=== PATIENT | female | born 1940 | race Caucasian/White ===

== ENCOUNTER 2018-08-11 07:07 | Day surgery (SDC) | payer MEDICARE ==
[2018-08-11] MEDS ORDERED: PROPOFOL 60 ML (08:45)
[2018-08-11] MEDS ORDERED: LIDOCAINE 2% (SDV) 5 ML INJ (08:45)
== END 2018-08-11 11:19 | disposition home or self-care (01) ==
LOC: GIL 07:07
DX: D12.4 Benign neoplasm of descending colon (principal); D12.3 Benign neoplasm of transverse colon; K29.60 Other gastritis without bleeding; K62.1 Rectal polyp; K44.9 Diaphragmatic hernia without obstruction or gangrene; K64.4 Residual hemorrhoidal skin tags; E78.5 Hyperlipidemia, unspecified; E11.9 Type 2 diabetes mellitus without complications; J44.9 Chronic obstructive pulmonary disease, unspecified; Z79.82 Long term (current) use of aspirin; Z79.84 Long term (current) use of oral hypoglycemic drugs
CPT/HCPCS: 43239; 82962; 88305; 88312